=== PATIENT | male | born 1995 | race Caucasian/White ===

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

== ENCOUNTER 2022-09-01 12:02 | Emergency (ER) | payer BC, OTHER ==
[~2022-09-01] VITALS: Ht 182.9 cm; Wt 99.1 kg
[2022-09-01] MEDS ORDERED: LOSA100T8 (12:17)
[2022-09-01] MEDS ORDERED: PARO20TA3 (12:17)
[2022-09-01] MEDS ORDERED: ONDA4TAB6 (12:17)
[2022-09-01] MEDS ORDERED: GI COCKTAIL 50ML BTL(HYOSCYAMINE/MAALOX/LIDOCAINE VISCOUS)(1:3:1) PO ONE (13:15)
[2022-09-01] MEDS ORDERED: PROMETHAZINE 25MG/ML 1ML VIAL IV ONE (13:15)
[2022-09-01] MEDS ORDERED: NS 1,000 ML IV ONE ×2 (13:15→14:35)
[2022-09-01] MEDS ORDERED: SUCRALFATE 1 GM TAB PO ONE (13:15)
[2022-09-01] MEDS ORDERED: PANTOPRAZOLE 40MG VIAL IV ONE (13:15)
[2022-09-01 13:38] LABS: BASO % 0.3 % (0.0-1.0); EOS # 0.1 10^3/uL (0.0-0.5); EOS % 1.7 % (0.0-3.0); HEMATOCRIT 47.7 % (42.0-52.0); HEMOGLOBIN 15.9 g/dl (13.5-17.5); LYMPH # 1.7 10^3/uL (1.5-5.0); LYMPH % 22.2 % (24.0-44.0); MEAN CORPUSCULAR HEMOGLOBIN 30.7 pg (27.0-33.0); MEAN CORPUSCULAR HGB CONC 33.3 g/dl (32.0-36.5); MEAN CORPUSCULAR VOLUME 92.1 fl (80.0-96.0); MONO # 0.4 10^3/uL (0.0-0.8); MONO % 5.8 % (2.0-8.0); NEUTROPHILS # 5.3 10^3/uL (1.5-8.5); NEUTROPHILS % 69.9 % (36.0-66.0); PLATELET COUNT, AUTOMATED 260 10^3/uL (150-450); RED BLOOD COUNT 5.18 10^6/uL (4.30-6.10); WHITE BLOOD COUNT 7.6 10^3/uL (4.0-10.0)
[2022-09-01 14:01] LABS: LIPASE 24 U/L (12-53)
[2022-09-01 14:03] LABS: ALBUMIN 4.3 G/DL (3.2-5.2); ALKALINE PHOSPHATASE 95 U/L (46-116); ALT/SGPT 46 U/L (7.0-40); AST/SGOT 25 U/L (<34); BILIRUBIN,DIRECT 0.3 MG/DL (<0.4); BILIRUBIN,TOTAL 0.8 MG/DL (0.3-1.2); CK-MB VALUE MASS < 1.0 NG/ML (<3.6); TOTAL PROTEIN 7.5 G/DL (5.7-8.2)
[2022-09-01 14:06] LABS: CPK CREATINE PHOSPHOKINASE 71 U/L (46-171)
[2022-09-01] MEDS ORDERED: KETOROLAC 30 MG/ML 1ML VIAL IV ONE (14:35)
[2022-09-01] MEDS ORDERED: OMEP-173 PO (16:24)
[2022-09-01] MEDS ORDERED: CARA1TAB6 PO (16:24)
[2022-09-01] MEDS ORDERED: DICY10CA13 PO (16:24)
[2022-09-01] MEDS ORDERED: DICYCLOMINE 10 MG CAP PO ONE (16:25)
[2022-09-01] MEDS ORDERED: PROM25TA12 PO (17:39)
[2022-09-01 17:52] VITALS: BP 148/70
== END 2022-09-01 17:54 | disposition home or self-care (01) ==
LOC: M ED 12:02
DX: A08.4 Viral intestinal infection, unspecified (principal); J45.909 Unspecified asthma, uncomplicated; I10 Essential (primary) hypertension; Z88.1 Allergy status to other antibiotic agents; Z79.899 Other long term (current) drug therapy
CPT/HCPCS: 71045; 80047; 80076; 82550; 82553; 83690; 84484; 85025; 86618; 87486; 87507; 87581; 87633; 87798; 93005; 96374; 96375; 99284; C9113; J1885; J2550